=== PATIENT | female | born 1955 | race Caucasian/White ===

== ENCOUNTER 2022-08-25 15:35 | Inpatient (IN) | payer OTHER ==
--- OUTSIDE RECORDS SUMMARY | 2022-08-25 15:39 | XMS REPORT | Continuity of Care Document ---
:1955 Author Organization [facility] t Address [address] [place] [address] [address] [place] [address] Care Team Providers Name Role Phone Kell Chow Primary Care Physician ROXANNE GONSALEZ Attending Clinician Unavailable KEVIN PROCTOR Attending Clinician Unavailable Stacy ENRIQUEZ, Kami Attending Clinician Unavailable Jayme ENRIQUEZ, Rohan Attending Clinician Unavailable KEVIN PROCTOR M.D. Attending Clinician Unavailable TERRANCE ESPINOZA M.D. Attending Clinician Unavailable JF HERMAN Attending Clinician Unavailable ARPAN BECKER APRN Attending Clinician Unavailable LYSSA LINDSAY APRN Attending Clinician Unavailable UMAIR BRUNNER M.D. Attending Clinician Unavailable Payers Payer Name Policy Type Policy Number Effective Date Expiration Date S rambo [facility] MEDICARE [id number] 2020 ADVANTAGE 00:00:00 Problems Condition Condition Condition Status Onset Resolution Last Treating Co mments Source Name Details Category Date Date Treatment Clinician Date Lumbar Lumbar Problem Active UT adjacent adjacent Physic i segment segment ans disease disease with with spondyloli spondyloli sthesis sthesis History of History of Problem Active U T healed healed Physici osteoporos osteoporos an s is is fracture fracture History of History of Problem Active U T vitamin D vitamin D Phys ici deficiency deficiency an s Age-relate Age-relate Problem Active U T d d Physici osteoporos osteoporos an s is with is with current current pathol pathol fracture fracture of of vertebra, vertebra, with with routine routine healing, healing, subsequent subsequent encounter encounter Encounter Encounter Problem Active UT for for Physici screening screening ans for for endocrine endocrine disorder disorder 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 Avascular Avascular Problem Active UT necrosis necrosis Physic i of right of right ans humeral humeral head head 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 Encounter Encounter Problem Active UT for for Physici administra administra an s tion of tion of COVID-19 COVID-19 vaccine vaccine Right Right Problem Active UT shoulder shoulder Physic i pain pain ans Status Status Problem Active UT post post Physici replacemen replacemen an s t of right t of right shoulder shoulder joint joint History of History of Problem Resolve UT Adrenal Adrenal d Physici nodule nodule ans History of History of Problem Resolve UT hypertensi hypertensi d Ph ysici on on ans Type 2 Type 2 Problem Active UT diabetes diabetes Physic i mellitus mellitus ans without without complicati complicati on, on, without without long-term long-term current current use of use of insulin insulin Open Open Problem Active UT Fracture Fracture Physic i Of Of ans Proximal Proximal End Of End Of Humerus Humerus Pars Pars Problem Active UT defect defect Physici ans Wedge Wedge Problem Active UT fracture fracture Physic i of of ans vertebra vertebra Allergies, Adverse Reactions, Alerts This patient has no known allergies or adverse reactions. Family History Family Member Diagnosis Comments Start Date Stop Date Source Mother Family history of goiter [facility] Mother Family history of malignant [facility] neoplasm of thyroid Social History Social Habit Start Date Stop Date Quantity Comments Source Exposure to Not sure [facility] SARS-CoV-2 (event) Tobacco use and 2021-08-05 2021-08-05 Smokeless tobacco [facility] exposure 00:00:00 00:00:00 non-user Sex Assigned At [birth year] [facility] 00:00:00 00:00:00 Smoking Status Start Date Stop Date Source Never smoked tobacco [facility] Medications Ordered Filled Start Stop Current Ordering Indication Dosage Frequency Signature Comments Components Source Medication Medication Date Date Medication? Clinician (SIG) Name Name [facility] Yes [id number] Take 25 U T KwikPen 100 1-14 units Health UNIT/ML 00:00: daily in injection 00 the morning [facility] Yes [id number] Take 25 U T KwikPen 100 1-14 units Health UNIT/ML 00:00: daily in injection 00 the morning [facility] Yes [id number] Take 25 U T KwikPen 100 1-14 units Health UNIT/ML 00:00: daily in injection 00 the morning insulin 2021- No [id number] INJECT 25 UT glargine 08-06 01-14 UNITS Health (Lantus 00:00: 00:00 DAILY. SoloStar) 00 :00 100 UNIT/ML injection carvedilol Yes 12.5mg 12.5 mg. U T (Coreg) 08-04 Health 12.5 MG 14:53: tablet 40 carvedilol Yes 12.5mg 12.5 mg. U T (Coreg) 08-04 Health 12.5 MG 14:53: tablet 40 carvedilol Yes 12.5mg 12.5 mg. U T (Coreg) 08-04 Health 12.5 MG 14:53: tablet 40 carvedilol Yes 12.5mg 12.5 mg. U T (Coreg) 08-04 Health 12.5 MG 14:53: tablet 40 Continuous Yes [id number] Dispense 1 UT Blood Gluc -04 reader Health Spout Worker 00:00: device (iRuleStyle 00 Frantz 2 [place]) device Continuous Yes [id number] Change UT Blood Gluc 1-04 sensor Health Sensor 00:00: every 14 (FreeStyle days Frantz 2 Sensor) misc Insulin Pen Yes [id number] With U T Needle (BD 08-04 lantus Health Pen Needle 00:00: once daily Moni U/F) 00 32G X 4 MM misc semaglutide Yes [id number] Take 0.25 UT (Ozempic) 2 1-04 mg once Healt h MG/1.5ML 00:00: weekly for solution 00 4 weeks pen-injecto THEN r increase to 0.5 mg once weekly Lancets Yes [id number] Check UT Micro Thin 1-04 blood Health 33G misc 00:00: sugar 4 00 times daily (before meals and at bedtime) Continuous Yes [id number] Dispense 1 UT Blood Gluc 1-04 reader Health Spout Worker 00:00: device (FreeStyle 00 Frantz 2 [place]) device Continuous Yes [id number] Change UT Blood Gluc 1-04 sensor Health Sensor 00:00: every 14 (FreeStyle 00 days Frantz 2 Sensor) misc Insulin Pen Yes [id number] With U T Needle (BD 1-04 lantus Health Pen Needle 00:00: once daily Moni U/F) 00 32G X 4 MM misc semaglutide Yes [id number] Take 0.25 UT (Ozempic) 2 1-04 mg once Healt h MG/1.5ML 00:00: weekly for solution 00 4 weeks pen-injecto THEN r increase to 0.5 mg once weekly Lancets Yes [id number] Check UT Micro Thin 1-04 blood Health 33G misc 00:00: sugar 4 00 times daily (before meals and at bedtime) Continuous Yes [id number] Dispense 1 UT Blood Gluc 1-04 reader Health Spout Worker 00:00: device (FreeStyle 00 Frantz 2 [place]) device Continuous Yes [id number] Change UT Blood Gluc 1-04 sensor Health Sensor 00:00: every 14 (FreeStyle days Frantz 2 Sensor) misc Insulin Pen Yes [id number] With U T Needle (BD 1-04 lantus Health Pen Needle 00:00: once daily Moni U/F) 00 32G X 4 MM misc semaglutide Yes [id number] Take 0.25 UT (Ozempic) 2 1-04 mg once Healt h MG/1.5ML 00:00: weekly for solution 00 4 weeks pen-injecto THEN r increase to 0.5 mg once weekly Lancets Yes [id number] Check UT Micro Thin 1-04 blood Health 33G misc 00:00: sugar 4 00 times daily (before meals and at bedtime) Continuous Yes [id number] Dispense 1 UT Blood Gluc 1-04 reader Health Spout Worker 00:00: device (FreeStyle 00 Frantz 2 [place]) device Continuous Yes [id number] Change UT Blood Gluc 1-04 sensor Health Sensor 00:00: every 14 (FreeStyle days Frantz 2 Sensor) misc Insulin Pen Yes [id number] With U T Needle (BD 1-04 [employer] Pen Needle 00:00: once daily Moni U/F) 00 32G X 4 MM misc semaglutide Yes [id number] Take 0.25 UT (Ozempic) 2 1-04 mg once Healt h MG/1.5ML 00:00: weekly for solution 00 4 weeks pen-injecto THEN r increase to 0.5 mg once weekly Lancets Yes [id number] Check UT Micro Thin 08-04 blood Health 33G misc 00:00: sugar 4 00 times daily (before meals and at bedtime) glucose 2022- No [id number] Check UT blood test 08-04 blood Health strip 00:00: 05:59 sugar 4 00 :00 times daily (before meals and at bedtime) glucose 2022- No [id number] Check UT blood test 08-04 blood Health strip 00:00: 05:59 sugar 4 00 :00 times daily (before meals and at bedtime) glucose 2022- No [id number] Check UT blood test 08-04 blood Health strip 00:00: 05:59 sugar 4 00 :00 times daily (before meals and at bedtime) glucose 2022- No [id number] Check UT blood test 08-04 blood Health strip 00:00: 05:59 sugar 4 00 :00 times daily (before meals and at bedtime) insulin 2021- No [id number] Inject 25 UT glargine 08-0405 Units Health (Lantus) 00:00: 04:59 under the 100 UNIT/ML 00 :00 skin 1 injection (one) time each day in the morning. insulin 2021- No [id number] 25U Inject 25 UT glargine 08-04 Units Health (Lantus) 00:00: 00:00 under the 100 UNIT/ML 00 :00 skin 1 injection (one) time each day in the morning. OneTouch OneTouch Yes KEVIN Dispense 1 UT Ultra 2 Ultra 2 5-07 GUTGungroo monitor Physici w/Device w/Device 00:00: M.D. ans Kit Kit 00 FreeStyle FreeStyle Yes KEVIN USE ONE UT Frantz 2 Frantz 2 5-07 [place] SENSOR P hysici Sensor Sensor 00:00: M.D. EVERY 14 ans 00 DAYS FreeStyle FreeStyle Yes KEVIN Please UT Frantz 2 Frantz 2 5-07 [place] dispense Physici [place] 00:00: M.D. one reader ans Device Device 00 device. NovoLOG NovoLOG Yes KEVIN Take 12 UT FlexPen 100 FlexPen 100 5-07 [place] units with Physici UNIT/ML UNIT/ML 00:00: M.D. meals plus a ns Subcutaneou Subcutaneou 00 correction s Solution s Solution as needed Pen-injecto Pen-injecto (up to 45 r r units per day) Tresiba Tresiba Yes KEVIN Take 35 UT FlexTouch FlexTouch 5-07 [place] units once Physici 100 UNIT/ML 100 UNIT/ML 00:00: M.D. daily in ans Subcutaneou Subcutaneou 00 the s Solution s Solution morning Pen-injecto Pen-injecto r r BD Pen BD Pen Yes KEVIN USE FOUR UT Needle Moni Needle Moni 5-07 GUT[place] TIMES Physici U/F 32G X 4 U/F 32G X 4 00:00: M.D. DAILY ans MM MM 00 Amoxicillin Amoxicillin Yes TERRANCE Take 2 UT 500 MG Oral 500 MG Oral 4-06 ESPINOZA M.D. capsules Physici Capsule Capsule 00:00: 30 minutes a ns 00 prior to dental procedure and 2 capsules right after the procedure. DME DME Yes TERRANCE Massage UT 4-29 KOEPPLINGE [employer] Physic i 00:00: R D.O. ans 00 simvastatin 2011-08 Yes UT (Zocor) 40 0-04 Health MG tablet 00:00: 00 ramipril 2011-08 Yes UT (Altace) 10 0-04 Health MG capsule 00:00: 00 simvastatin 2011-08 Yes UT (Zocor) 40 0-04 Health MG tablet 00:00: 00 ramipril 2011-08 Yes UT (Altace) 10 0-04 Health MG capsule 00:00: 00 simvastatin 2011-08 Yes UT (Zocor) 40 0-04 Health MG tablet 00:00: 00 ramipril 2011-08 Yes UT (Altace) 10 0-04 Health MG capsule 00:00: 00 simvastatin 2011-08 Yes UT (Zocor) 40 0-04 Health MG tablet 00:00: 00 ramipril 2011-08 Yes UT (Altace) 10 0-04 Health MG capsule 00:00: 00 Simvastatin Simvastatin 2011-08 Yes UT 40 MG Oral 40 MG Oral 0-04 Phy sici Tablet Tablet 00:00: ans 00 Ramipril 10 Ramipril 10 2011-08 Yes UT MG Oral MG Oral 0-04 Physici Capsule Capsule 00:00: ans 00 Carvedilol Carvedilol Yes UT 12.5 MG 12.5 MG Physici Oral Tablet Oral Tablet a ns Immunizations Ordered Immunization Filled Immunization Date Status Commen ts Source Name Name Pivotstream 2020-09-24 Completed [facility] Physic ians COVID-19 Vacc 30 12:55:00 MCG/0.3ML Intramuscular Suspension Pivotstream 2020-08-31 Completed [facility] Physic ians COVID-19 Vacc 30 10:08:00 MCG/0.3ML Intramuscular Suspension Vital Signs Vital Name Observation Time Observation Value Comments Source Systolic blood 2020-11-18 14:52:00 116 mm[Hg] Location: E; [facility] pressure Position: Sitting Diastolic blood 2020-11-18 14:52:00 80 mm[Hg] Location: E; [facility] pressure Position: Sitting Body height 2020-11-18 14:52:00 64 [in_us] [facility] Weight 2020-11-18 14:52:00 191.125 [lb_av] [facility] Body mass index 2020-11-18 14:52:00 32.81 kg/m2 [facility] (BMI) [Ratio] Heart Rate 2020-11-18 14:52:00 102 /min [facility] Procedures Procedure Date / Time Performed Performing Clinician Sourc e [QL] HEMOGLOBIN A1c 2020-12-02 00:00:00 [facility] [QL] BASIC METABOLIC PANEL 2020-11-18 00:00:00 [facility] W/EGFR [Q] DEXAMETHASONE 2020-11-18 00:00:00 [facility] ans SUPPRESSION TEST (DST), 1 SPECIMEN [Q] DEXAMETHASONE 2020-11-18 00:00:00 [facility] ans [Q] PLASMA RENIN 2020-11-18 00:00:00 [facility] ACTIVITY,LC/MS/MS [QL] ALDOSTERONE, LC/MS/MS 2020-11-18 00:00:00 [facility] [QL] METANEPHRINES, FRACT, 2020-11-18 00:00:00 [facility] LC/MS/MS, PLASMA Post Op Promis 29 Survey 2020-08-05 00:00:00 [facility] History of Laparoscopic [facility] adjustable gastric banding History of Cholecystectomy [facility] History of Hernia repair [facility] History of Cataract surgery [facility] History of Shoulder [facility] replacement Encounters Start End Encounter Admission Attending Care Care Encounter Source Date/Time Date/Time Type Type Clinicians Facility Department ID 2021-08-11 Outpatient ROXANNE GONSALEZ [facility] [id number] UT 09:19:03 [facility] 2021-08-06 Outpatient [facility] [id number] UT 08:59:13 [facility] 2020-12-31 Outpatient [facility] [id number] UT 09:20:29 [facility] 2021-11-11 2021-11-11 Telephone Kami Kumar [facility] [id number] [place] 00:00:00 00:00:[address] [id number] Health [id number] 2021-09-07 2021-09-07 Telephone Rohan Delacruz [id number]. [id number] [place] 00:00:00 00:00:00 Rohan Delacruz [id number] Health MEDICAL [id number] [place] [id number] 2021-08-14 2021-08-14 Telephone Esthela [facility]TP [id number] [id number] [place] 00:00:00 00:00:[address] [id number] Health [id number] 2021-08-05 2021-08-05 Telephone Esthela [facility] 6410 [id number] [place] 00:00:00 00:00:[address] [id number] Health [id number] 2021-08-04 2021-08-04 [facility] Esthela [facility] 6410 [id number] UT 14:40:00 15:43:[address] [id number] Health [id number] 2020-11-18 [id number] UT 15:00:00 15:00:00 t; [facility]tagracia [facility] Latrell BROWN M.D. Kiana 2020-09-24 2020-09-24 Appointmen JOSEFA ESPINOZA UTP [id number] UT 15:00:00 15:00:00 t; TERRANCE ESPINOZA Phys ici MATTHEW, M.D. ans M.D. 2020-09-24 2020-09-24 Appointmen JOSEFA ESPINOZA UTP [id number] UT 13:30:00 13:30:00 t; TERRANCE ESPINOZA Phys ici MATTHEW, M.D. ans M.D. 2020-09-24 2020-09-24 Appointmen CO19, JOSEFA UTP [id number] UT 09:50:00 09:50:00 t; CO19, NURSE-COOLE P hysici NURSE-COOL Y ans EY 2020-08-31 2020-08-31 Appointmen CO19, UTP UTP [id number] UT 09:20:00 09:20:00 t; CO19, NURSE-COOLE P hysici NURSE-COOL Y ans EY 2020-08-12 2020-08-12 Appointmen JOSEFA BECKER UTP [id number] UT 10:00:00 10:00:00 t; ARPAN BECKER, Ph bruce ANTONY MOBILE HEAVY EQUIPMENT OPERATOR ans , MOBILE HEAVY EQUIPMENT OPERATOR 2020-07-10 2020-07-10 Appointmen JOSEFA ESPINOZA UTP [id number] UT 10:30:00 10:30:00 t; TERRANCE ESPINOZA Phys ici MATTHEW, M.D. ans M.D. 2020-07-01 2020-07-01 [facility] OLGA [facility] UTP [id number] UT 08:30:00 08:30:00 t; TERRANCE ESPINOZA Phys ici MATTHEW, M.D. ans M.D. 2020-05-29 2020-05-29 [facility] [id number] UT 16:00:00 16:00:00 t; TERRANCE ESPINOZA Phys ici MATTHEW, M.D. ans M.D. 2020-04-15 2020-04-15 [facility] LYSSA LINDSAY, [facility] [id number] UT 09:30:00 09:30:00 t; EUSEBIA LINDSAY Physic i LYSSA [facility] 2020-03-24 2020-03-24 [facility] LYSSA LINDSAY, [facility] [id number] UT 10:30:00 10:30:00 t; EUSEBIA LINDSAY Physic i LYSSA [facility] 2020-03-19 2020-03-19 [facility] REGINALD [facility] [id number] UT 12:00:00 12:00:00 t; Raiza BRUNNER ANDREW, ans ANDREW, M.D. M.D. 2020-03-06 2020-03-06 [facility] REGINALD [facility] UTP [id number] UT 13:45:00 13:45:00 t; Raiza BRUNNER ANDREW, ans ANDREW, M.D. M.D. 2020-01-18 2020-01-18 [facility] [id number] UT 15:00:00 15:00:00 t; TERRANCE ESPINOZA Phys ici MATTHEW, M.D. ans M.D. Results Test Description Test Time Test Comments Results Result Comments Source [QL] HEMOGLOBIN A1c 2020-12-03 08:28:00 Test Item Value Reference Range Interpretation Comme nts HEMOGLOBIN A1c; Above High 13.7 {% of total} <5.7 For someone without known Threshold (test code = diabe zaki, a hemoglobin H3qagner 4548-4) of 6.5% or grea ter indicates that they may h ave diabetes and this should be confirmed with a follow-up test. For someone with known diabetes, a value <7% indicates that their diabetes is well controlled and a value greater than or equal to 7% indicates subop timal control. A1c targets sandy uld be individualized based on duration of diabetes, ag e, comorbid conditions, and other considerations. Currently, no consensus exist s regarding use ofhemoglobin A1 c for diagnosis of diabetes for children. SPECIMEN RECEIV ED DATE AND TIME: REPORT COMMENT:FASTING:YESUT [facility]icians[QL] BASIC METABOLIC PANEL W/EGFR 2020-11-27 07:42:00 Test Item Value Reference Range Interpretation Comments GLUCOSE; Above 505 mg/dl 65-139 Verified by r epeat High Threshold analysis. Non -fasting (test code = reference inter zac 1547-9) UREA NITROGEN 17 mg/dl 7-25 N (BUN) (test code = UREA NITROGEN (BUN)) CREATININE (test 0.66 mg/dl 0.50-0.99 N For patient s >49 years code = of age, the ref erence CREATININE) limitfor Creati nine is approximately 1 3% higher for peopleidentifie d as -Pepper n. eGFR NON-AFR. 91 {ML/MIN/1.7} See_Comment N [Automated message] [place] (test The system ich code = eGFR generated this result NON-AFR. transmitted ref erence [place]) range: > OR = 6 0. The reference range was not used to int erpret this result as normal/abnormal . eGFR 106 {ML/MIN/1.7} See_Comment N [Automated message] [place] (test The system ich code = eGFR generated this result ) transmitte d reference range: > OR = 6 0. The reference range was not used to int erpret this result as normal/abnormal . BUN/CREATININE NOT APPLICABLE 6-22 RATIO (test code = BUN/CREATININE RATIO) SODIUM (test code 134 mmol/L 135-146 = SODIUM) POTASSIUM (test 4.9 mmol/L 3.5-5.3 N code = POTASSIUM) CHLORIDE (test 99 mmol/L 98-110 N code = CHLORIDE) CARBON DIOXIDE 24 mmol/L 20-32 N (test code = CARBON DIOXIDE) CALCIUM (test 9.1 mg/dl 8.6-10.4 N SPECIMEN RECEI KEMAL DATE code = CALCIUM) AND TIME: [id number] [facility][Q] PLASMA RENIN ACTIVITY,LC/MS/[id number] 07:42:00 Test Item Value Reference Range Interpretation Comments PLASMA RENIN 1.70 0.25-5.82 This test was d eveloped and its ACTIVITY,LC/ ng/mL/h analytical MS/MS (test performancechar acteristics have code = been determined by [employer] PLASMA RENIN [facility] [employer] [employer] . It has not MS/MS) beencleared or approved by FDA. This assay has been validatedpursua nt to the CLIA regulations and is used for clinicalpurpose s. SPECIMEN RECEIVED DATE A ND TIME: [id number] [facility][QL] ALDOSTERONE, LC/MS/[id number] 07:42:00 Test Item Value Reference Range Interpretation Comments ALDOSTERONE, 5 ng/dl Adult Reference Ranges for LC/MS/MS (test Aldosterone: Upright 8:00-10:00 code = am < or = 28 ng /dL Upright ALDOSTERONE, 4:00-6:00 pm < or = 21 ng/dL LC/MS/MS) Supine 8:00-10: 00 am 3-16 ng/dL This test was d eveloped and its analytical performancechar acteristics have been determined by [facility] [employer] rom[employer]. It has not beencleared or approved by FDA. This assay has been validatedpursua nt to the CLIA regulations and is used for clinicalpurpose s. SPECIMEN RECEIVED DATE A ND TIME: [id number] REPORT COMMENT:FASTING:NOUT Physicians[Q] DEXAMETHASONE SUPPRESSION TEST (DST), 1 [id number] 07:42:00 Test Item Value Reference Range Interpretation Comments CORTISOL (test 1.6 {mcg/dl} N Dexamethasone code = CORTISOL) Suppression TestFor 8 a.m. Specimen: <2.0 - Normal Response 2.0-10.0 - Equivocal &g t;10.0 - High probabilit y of Hammond's SyndromeFurther diagnostic test s must be performed to co nfirmthe diagnosis and d etermine etiology. Value s >2.0 mcg/dL canbe se en in endogenous depr ession and pseudo-Juan Daniel' s(alcohol ism). SPECIMEN RECEIVED DATE AND TIME: REPORT COMMENT:FASTING:NOUT Physicians[Q] [id number] 07:42:00 Test Item Value Reference Interpretation Comments Range DEXAMETHASONE 387 ng/dl Reference Rang es for (test code = Dexamethasone: Baseline: Less DEXAMETHASONE) than 20 ng/dL 1 mg dexamethasone o vernight: 180-550 ng/dL ( 8:00-10:00 AM) This test was d eveloped and its analytical performancechar acteristics have been deter mined by [facility]. It has not beencleared or approved by FDA. This assay has been validatedpursua nt to the CLIA regulations and is used for clinicalpurpose s.SPECIMEN RECEIVED DATE A ND TIME: [id number] REPORT COMMENT:FASTING:NOUT Physicians[QL] METANEPHRINES, FRACT, LC/MS/MS, [id number] 07:42:00 Test Item Value Reference Interpretation Comments Range METANEPHRINE (test <25 See_Comment This test was developed and code = its analytical METANEPHRINE) performancecha racteristics have been deter mined by [facility]. It has not beencleared or approved by FDA. This as say has been validatedpursua nt to the CLIA regulations and is used for clinicalpurpose s. [Automated message] The sy stem which generated this result transmitted ref erence range: < OR = 57. The reference range was not u sed to interpret this result as normal/abnormal . NORMETANEPHRINE 46 pg/ml See_Comment This test wa s developed and (test code = its analytical NORMETANEPHRINE) performance characteristics have been deter mined by [facility]. It has not beencleared or approved by FDA. This as say has been validatedpursua nt to the CLIA regulations and is used for clinicalpurpose s. [Automated message] The sy stem which generated this result transmitted ref erence range: < OR = 148. The reference range was not u sed to interpret this result as normal/abnormal . TOTAL METANEPHRINE 46 pg/ml See_Comment Elevation s > 4-fold upper (test code = TOTAL reference range: METANEPHRINE) stronglysugges tive of a pheochromocytom a(1). Elevations >1 - 4-foldupper reference range : significant but not diagnos tic, maybe due to medications or stress. Suggest running 24 hr urinefractionat ed metanephrines a nd serum Chromogranin A forconfirmation . Reference: (1) [place]-S lisa Biggs et al, Plasma Department Director mogranin A orUrine Fractio nated Metanephrines F ollow-Up Testing Improve sthe Diagnostic Accu racy of Plasma Fractionated Me tanephrinesfor Pheochromocytom a. The Journal of Clinical End ocrinologyand Metabolism 93 ( 1),91-95, 2007. For addit ional information, pl ease refer tohttp://educat ion.[employer].Holganix/faq/ MetFractFree(T his link is arya allison provided for informational/e ducationalpurp oses only.) Thi s test was developed and i ts analytical performancechar acteristics have been deter mined by [facility]. It has not beencleared or approved by FDA. This as say has been validatedpursua nt to the CLIA regulations and is used for clinicalpurpose s.SPECIMEN RECEIVED DATE A ND TIME: [id number] [A utomated message] The sy stem which generated this result transmitted ref erence range: < OR = 205. The reference range was not u sed to interpret this result as normal/abnormal . This test was developed and its analytical performancecharacteristics have been determined by [facility]. It has not beencleared or approved by FDA. This assay has been validatedpursuant to the CLIA regulations and is used for clinicalpurposes.REPORT COMMENT:FASTING:NOUT Physicians
[2022-08-25 16:34] LABS: Absolute Lymphocytes (CBC) 3.1 K/uL (0.7-4.9); Hematocrit 38.6 % (36.0-45.0); Lymphocytes % 24.2 % (15.3-44.8); MCV 89.1 fL (80-100); RBC Red Blood Cell Count 4.34 M/uL (3.86-4.86)
--- NOTE | 2022-08-25 16:54 | RAD REPORT ---
EXAM DESCRIPTION: CT - Foot Right Wo Con - 08/25/2022 4:40 pm CLINICAL HISTORY: right great toe wound, cellulitis Pain and swelling COMPARISON: No comparisons FINDINGS: There is a soft tissue ulceration noted along the plantar medial aspect of the great toe s oft tissues. The soft tissues of the great toe along the medial forefoot are quite thickened and hollis atous. No soft tissue gas is present. No CT evidence of osteomyelitis demonstrated. IMPRESSION: No CT evidence of osteomyelitis. MRI could be obtained if clinical concern persists. All CT scans are performed using dose optimization technique as appropriate and may include automated exposure control or mA/KV adjustment according to patient size.
[2022-08-25 16:58] LABS: Albumin 3.1 g/dL (3.4-5.0); Bilirubin Total 0.5 mg/dL (0.2-1.0); Potassium 4.4 mmol/L (3.5-5.1); Protein, Total 7.6 g/dL (6.4-8.2)
--- NOTE | 2022-08-25 17:54 | RAD REPORT ---
EXAM DESCRIPTION: RAD - Foot Right 3 View - 08/25/2022 5:49 pm CLINICAL HISTORY: WOUND COMPARISON: Foot Right Wo Con dated 08/25/2022; Chest Pa And Lat (2 Views) dated 12/18/2019 FINDINGS: Soft tissue swelling affects the great toe. Soft tissue ulceration is seen plantar medial aspect of the great toe. No plain film finding to indicate osteomyelitis. Large plantar calcaneal spu r.
--- NOTE | 2022-08-25 18:52 | ER ---
Nurse's Notes [facility] Name: Indigo Angulo Age: 67 yrs Sex: Female : 1955 Arrival Date: 08/25/2022 Time: 15:39 Bed 18 Private MD: Diagnosis: Cellulitis of the right great toe Presentation: 08/25 16:00 Chief complaint: Patient states: has a diabetic foot ulcer on right great toe for at iw least a month , was seen at urgent care and was sent here to r/o osteomyelitis. Coronavirus screen: At this time, the client does not indicate any symptoms associated with coronavirus-19. Ebola Screen: Patient negative for fever greater than or equal to 101.5 degrees Fahrenheit, and additional compatible Ebola Virus Disease symptoms Patient denies exposure to infectious person. Patient denies travel to an Ebola-affected area in the 21 days before illness onset. No symptoms or risks identified at this time. Initial Sepsis Screen: Does the patient meet any 2 criteria? No. Patient's initial sepsis screen is negative. Does the patient have a suspected source of infection? No. Patient's initial sepsis screen is negative. Risk Assessment: Do you want to hurt yourself or someone else? Patient reports no desire to harm self or others. Onset of symptoms was July 2022. 16:00 Method Of Arrival: Ambulatory iw 16:00 Acuity: RADHA 3 iw Historical: - Allergies: 16:02 No Known Allergies; iw - PMHx: 16:02 Diabetes mellitus; Hypertensive disorder; Hypercholesterolemia; iw - PSHx: 16:02 right shoulder; iw - Immunization history:: Client reports receiving the 2nd dose of the Covid vaccine, Flu vaccine is up to date. - Social history:: Smoking status: Patient denies any tobacco usage or history of. Screenin:28 [facility] ED Fall Risk Assessment (Adult) History of falling in the last 3 months, lg3 including since admission No falls in past 3 months (0 pts). Abuse screen: Denies threats or abuse. Denies injuries from another. Nutritional screening: No deficits noted. Tuberculosis screening: No symptoms or risk factors identified. Assessment: 19:28 General: Appears in no apparent distress. comfortable, Behavior is calm, cooperative. lg3 Pain: Complains of pain in plantar aspect of right first toe Pain currently is 2 out of 10 on a pain scale. Neuro: No deficits noted. Camilo Agitation-Sedation Scale (RASS): 0 - Alert and Calm Level of Consciousness is awake, alert, obeys commands, Oriented to person, place, time, situation. Cardiovascular: No deficits noted. Denies chest pain, shortness of breath, Capillary refill < 3 seconds Clubbing of nail beds is absent JVD is absent Patient's skin is warm and dry. Respiratory: No deficits noted. Airway is patent Trachea midline Respiratory effort is even, unlabored, Respiratory pattern is regular, symmetrical. GI: No deficits noted. No signs and/or symptoms were reported involving the gastrointestinal system. Abdomen is round non-distended. : No deficits noted. No signs and/or symptoms were reported regarding the genitourinary system. EENT: No deficits noted. No signs and/or symptoms were reported regarding the EENT system. Derm: Wound noted plantar aspect of right first toe. Musculoskeletal: No deficits noted. No signs and/or symptoms reported regarding the musculoskeletal system. Swelling present in right first toe. Vital Signs: 16:00 BP 173 / 94; Pulse 106; Resp 16; Temp 98.4; Pulse Ox 100% on R/A; Weight 86.18 kg; iw Height 5 ft. 4 in. (162.56 cm); 19:28 BP 154 / 88; Pulse 94; Resp 17 S; Pulse Ox 100% on R/A; lg3 16:00 Body Mass Index 32.61 (86.18 kg, 162.56 cm) ED Course: 15:39 Patient arrived in ED. mr 15:46 Jim Varner PA is PHCP. [facility] 15:46 Buck Harris MD is Attending Physician. [facility] 16:02 Triage completed. iw 16:03 Arm band placed on. iw 16:26 Inserted saline lock: 20 gauge in left antecubital area, using aseptic technique. Blood zm collected. 16:26 CRP Sent. zm 16:26 Lactate w/ 2H reflex if indic. Sent. zm 16:26 Blood Culture Adult (2) Sent. zm 16:26 CMP Sent. zm 16:26 CBC with Diff Sent. zm 16:42 Foot Right Wo Con In Process Unspecified. EDMS 17:50 Foot Right 3 View In Process Unspecified. EDMS 18:43 Lower Extremity Artery Uni Ltd In Process Unspecified. EDMS 18:51 Baidoo, Hilario is Hospitalizing Provider. [facility] 19:28 Patient has correct armband on for positive identification. Placed in gown. Bed in low lg3 position. Call light in reach. Side rails up X 1. Door closed. Noise minimized. Warm blanket given. Family accompanied patient. 19:28 No provider procedures requiring assistance completed. IV is patent, is intact, with lg3 good blood return, Flushed. 08/26 11:27 Patient admitted, IV remains in place. ap3 Administered Medications: 08/25 19:27 Drug: vancoMYCIN 1 grams Route: IVPB; Infused Over: 2 hrs; Site: left antecubital; lg3 Medication: 19:28 VIS not applicable for this client. lg3 Outcome: 18:52 Decision to Hospitalize by Provider. [facility] 08/26 11:27 Admitted to OR accompanied by nurse, via wheelchair, with chart. ap3 Condition: good Instructed on the need for admit. 11:28 Patient left the ED. ap3 Signatures: Dispatcher [employer] EDMS Jim Varner PA PA [facility] Makeda Shay mr Mayela Gaspar, Soumya Antonio RN, RN RN ap3 Jaclyn Sandhu RN RN lg3 Ivon Payton
--- NOTE | 2022-08-25 18:52 | EDPHYS ---
Physician Documentation [facility] Name: Indigo Angulo Age: 67 yrs Sex: Female : 1955 Arrival Date: 08/25/2022 Time: 15:39 Bed 18 Private MD: ED Physician Buck Harris HPI: 08/25 16:07 This 67 yrs old Female presents to ER via Ambulatory with complaints of Open wound. jmm 16:07 Is a 67-year-old female with history of diabetes mellitus and hypertension the presents jmm emerged part with complaints of redness and swelling to her right great toe beginning yesterday. Patient states she has had a wound underneath her toe for the past month. Denies any fever or drainage.. Historical: - Allergies: 16:02 No Known Allergies; iw - PMHx: 16:02 Diabetes mellitus; Hypertensive disorder; Hypercholesterolemia; iw - PSHx: 16:02 right shoulder; iw - Immunization history:: Client reports receiving the 2nd dose of the Covid vaccine, Flu vaccine is up to date. - Social history:: Smoking status: Patient denies any tobacco usage or history of. ROS: 16:07 Constitutional: Negative for fever, chills, and weight loss, Cardiovascular: Negative jm for chest pain, palpitations, and edema, Respiratory: Negative for shortness of breath, cough, wheezing, and pleuritic chest pain. 16:07 Skin: Positive for erythema. 16:07 All other systems are negative. Exam: 16:07 Constitutional: This is a well developed, well nourished patient who is awake, alert, jmm and in no acute distress. Head/Face: atraumatic. Eyes: EOMI, no conjunctival erythema appreciated ENT: Moist Mucus Membranes Neck: Trachea midline, Supple Chest/axilla: Normal chest wall appearance and motion. Cardiovascular: Regular rate and rhythm. No edema appreciated Respiratory: Normal respirations, no respiratory distress appreciated Abdomen/GI: Non distended Back: Normal ROM 16:07 MS/ Extremity: Moves all extremities, no obvious deformities appreciated, no edema noted to the lower extremities Neuro: Awake and alert Psych: Behavior is normal, Mood is normal, Patient is cooperative and pleasant 16:07 Skin: Erythema and induration noted to the entire right great toe, mildly tender to palpation, ulcer noted to the plantar surface. Vital Signs: 16:00 BP 173 / 94; Pulse 106; Resp 16; Temp 98.4; Pulse Ox 100% on R/A; Weight 86.18 kg; iw Height 5 ft. 4 in. (162.56 cm); 19:28 BP 154 / 88; Pulse 94; Resp 17 S; Pulse Ox 100% on R/A; lg3 16:00 Body Mass Index 32.61 (86.18 kg, 162.56 cm) iw MDM: 16:08 Patient medically screened. [facility] 18:48 Data reviewed: vital signs, nurses notes. [facility] 18:50 Consideration of Admission/Observation Patient was admitted/placed on observation. [facility] Management of patient was discussed with the following: Hospitalist: Dr. Lotus Woodall. Food Storeroom Clerk: Dr. Bradley. I considered the following discharge prescriptions or medication management in the emergency department Medications were administered in the Emergency Department. See MAR. Test considered but Not performed:. Counseling: I had a detailed discussion with the patient and/or guardian regarding: the historical points, exam findings, and any diagnostic results supporting the discharge/admit diagnosis, lab results, radiology results, the need for further work-up and treatment in the hospital. 08/25 16:07 Order name: CBC with Diff; Complete Time: 16:47 [facility] 08/25 16:07 Order name: CMP; Complete Time: 17:13 [facility] 08/25 16:07 Order name: Blood Culture Adult (2) [facility] 08/25 16:07 Order name: Lactate w/ 2H reflex if indic.; Complete Time: 16:58 [facility] 08/25 16:07 Order name: CRP; Complete Time: 17:13 [facility] 08/25 19:17 Order name: SARS RAPID; Complete Time: 20:49 [facility] 08/25 21:12 Order name: Glucose, Ancillary Testing; Complete Time: 22:38 [facility] 08/26 04:09 Order name: CBC with Automated Diff; Complete Time: 04:16 [facility] 08/26 04:25 Order name: Basic Metabolic Panel; Complete Time: 05:14 [facility] 08/26 04:25 Order name: Phosphorus; Complete Time: 05:14 [facility] 08/26 04:25 Order name: Lipid Profile; Complete Time: 05:14 [facility] 08/26 04:25 Order name: Magnesium; Complete Time: 05:14 [facility] 08/26 04:30 Order name: Hemoglobin A1c; Complete Time: 05:14 ED[facility] 08/26 08:12 Order name: Glucose, Ancillary Testing; Complete Time: 08:13 EDMS 08/25 16:07 Order name: Saline Lock; Complete Time: 16:26 [facility] 08/25 16:11 Order name: Foot Right Wo Con; Complete Time: 16:58 EDMS 08/25 17:45 Order name: Foot Right 3 View; Complete Time: 17:59 EDMS 08/25 18:17 Order name: Lower Extremity Artery Uni Ltd; Complete Time: 19:00 EDMS Administered Medications: 19:27 Drug: vancoMYCIN 1 grams Route: IVPB; Infused Over: 2 hrs; Site: left antecubital; lg3 Disposition: 08/27 06:58 Co-signature as Attending Physician, Buck Harris MD I reviewed the patient's care rt provided by the Advanced Practice Provider and agree with the diagnosis and treatment plan. Disposition Summary: 08/25/22 18:52 Hospitalization Ordered Hospitalization Status: Inpatient Admission [facility] Provider: Hilario Lopez Condition: Stable jm Problem: new jmm Symptoms: are unchanged jm Bed/Room Type: Standard [facility] Location: [facility] ER HOLD(08/25/22 20:45) cg Room Assignment: ERHOLD-(08/25/22 20:45) cg Diagnosis - Cellulitis of the right great toe [facility] Forms: - Medication Reconciliation Form jmm - SBAR form jmm Signatures: Dispatcher [employer] EDMS Jim Varner PA PA jmm Williams, Irene, RN RN Gemma Lucas RN RN Jaclyn Sandhu RN RN lg3 Chery Woodall PA-C PAAlisa sb4 Buck Harris MD MD rt Corrections: (The following items were deleted from the chart) 08/25 17:44 16:08 Foot Right 3 View+RAD.RAD.BRZ ordered. EDMS EDMS 18:14 17:44 Lower Extremity Artery Uni Ltd+US.RAD.BRZ ordered. EDMS EDMS 18:17 18:14 Extremity Venous Uni Ltd ordered. EDMS EDMS 20:45 18:52 Telemetry/MedSurg (Inpatient) [facility] cg 20:45 18:52 [facility] cg
--- NOTE | 2022-08-25 18:57 | RAD REPORT ---
EXAM DESCRIPTION: US - Lower Extremity Artery Uni Ltd - 08/25/2022 6:42 pm CLINICAL HISTORY: cellulitis Leg pain and swelling COMPARISON: No comparisons FINDINGS: Grayscale, power and spectral Doppler assessment of the right lower extremity arterial sys tem was performed. Triphasic waveforms are seen to the level of the popliteal artery. Infrapopliteal vessels are monopha sic and mildly blunted. IMPRESSION: Moderate infrapopliteal peripheral vascular disease.
[2022-08-25] MEDS ORDERED: VANCOMYCIN 1 GM/VIAL ONE (19:20)
[2022-08-25] MEDS ORDERED: NA CHLORIDE 0.9% 250 ML ONE (19:20)
--- NOTE | 2022-08-25 19:29 | P.HP ---
Certification for Inpatient Patient admitted to: Inpatient With expected LOS: <2 Midnights Patient will require the following post-hospital care: None Practitioner: I am a practitioner with admitting privileges, knowledge of patient current condition, hospital course, and medical plan of care. Services: Services provided to patient in accordance with Admission requirements found in Title 42 Section 412.3 of the Code of Federal Regulations Patient History Date of Service: 08/25/22 Primary Care Provider: Geraldo Reason for admission: Cellulitus R Big Toe History of Present Illness: Patient is a 67-year-old female with past medical history of type 2 diabetes, hypertension, and hyperlipidemia who presented to the emergency department with complaints of right big toe erythema and swelling. Patient states that she has had a wound on the plantar aspect of her right big toe for over a month now, but yesterday she noticed the toe itself was becoming very red and swollen. She is diabetic but has not been taking any oral medication or insulin in over 6 months. She went to an urgent care today and they sent her here to have os teomyelitis ruled out. CT was negative for osteomyelitis. Labs significant for WBC 12.9, CRP 128, glucose 426. She was started on vancomycin. Dr. Bradley was contacted and has agreed to consult. Patient will be admitted for further management. Allergies codeine [Codeine] Adverse Reaction (Intermediate, Verified 05/02/12 09:58) NAUSEA Home medications list reviewed: Yes - Past Medical/Surgical History Diabetic: Yes -: Type 2 Diabetes -: Hypertension -: Hyperlipidemia -: Right shoulder Psychosocial/ Personal History: Patient is . - Family History Family History: Reviewed- Non-Contributory - Social History Smoking Status: Never smoker Alcohol use: No CD- Drugs: No Caffeine use: Yes Place of Residence: Home Review of Systems 10-point ROS is otherwise unremarkable Integumentary: As per HPI Physical Examination - Physical Exam General: Alert, In no apparent distress HEENT: Atraumatic, PERRLA, EOMI, Sclerae nonicteric Neck: Supple, 2+ carotid pulse no bruit, No LAD, Without JVD or thyroid abnormality Respiratory: Clear to auscultation bilaterally, Normal air movement Cardiovascular: Regular rate/rhythm, Normal S1 S2 Gastrointestinal: Normal bowel sounds, No tenderness Musculoskeletal: No tenderness Integumentary: Tenderness/swelling (r big toe cellulitus), Erythema, Warmth, Diabetic ulcer (plantar aspect of r big toe) Neurological: Normal speech, Normal strength at 5/5 x4 extr, Normal tone - Studies Laboratory Data (last 24 hrs) 08/25/22 16:20: Sodium 132 L, Potassium 4.4, BUN 12, Creatinine 0.68, Glucose 426 H*, Total Bilirubin 0.5, AST 6 L, ALT 14, Alkaline Phosphatase 183 H 08/25/22 16:20: WBC 12.80 H, Hgb 12.9, Hct 38.6, Plt Count 304 Assessment and Plan - Problems (Diagnosis) (1) Cellulitis of toe of right foot Current Visit: Yes Status: Acute (2) Type 2 diabetes mellitus Current Visit: Yes Status: Chronic 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 Continue vancomycin. Dr. Bradley & wound care consulted. NPO at midnight in case for surgical intervention. Strict glucose monitoring and control. Patient has not been taking any of her diabetic medications for over 6 months. Wound culture ordered. Check A1c and lipid panel in the morning. Monitor and replete electrolytes per protocol. SCDs for VTE prophylaxis. Full code. Discharge Plan: Home Plan to discharge in: 48 Hours - Advance Directives Does patient have a Living Will: No Does patient have a Durable POA for Healthcare: No - Code Status/Comfort Care Code Status Assessed: Yes Code Status: Full Code Physician Review: Patient Assessed, Agree with Above Assessment and Plan Critical Care: No Time Spent Managing Pts Care (In Minutes): 50
[2022-08-25] MEDS ORDERED: ONDANSETRON 4 MG/2 ML VIAL IV PRN (20:21)
[2022-08-25] MEDS ORDERED: ACETAMINOPHEN 500 MG TAB PO PRN (20:21)
[2022-08-25 20:23] LABS: SARS-CoV-2 Antigen Rapid Res Negative (Negative)
[2022-08-25] MEDS: VANCOMYCIN 1 GM in NA CHLORIDE 0.9% 250 ML IVPB SCH (20:56)
[2022-08-25] MEDS: INSULIN -REGULAR HUMAN 50 UNIT/0.5 ML ML SQ SCH (21:00)
[2022-08-25] MEDS ORDERED: INSULIN -REGULAR HUMAN 50 UNIT/0.5 ML ML ONE (21:12)
[2022-08-25 21:35] VITALS: BMI 32.5
[2022-08-26 04:07] LABS: Absolute Lymphocytes (CBC) 3.9 K/uL (0.7-4.9); Hematocrit 37.4 % (36.0-45.0); Lymphocytes % 41.1 % (15.3-44.8); RBC Red Blood Cell Count 4.25 M/uL (3.86-4.86)
[2022-08-26 04:24] LABS: Phosphorus 2.8 mg/dL (2.5-4.9); Potassium 3.9 mmol/L (3.5-5.1)
[2022-08-26] MEDS: INSULIN -REGULAR HUMAN 50 UNIT/0.5 ML ML SQ SCH ×4 (07:30→22:00)
[2022-08-26] MEDS ORDERED: VANCOMYCIN 1 GM/VIAL ONE (08:06)
[2022-08-26] MEDS ORDERED: NA CHLORIDE 0.9% 250 ML ONE (08:06)
[2022-08-26] MEDS: VANCOMYCIN 1 GM in NA CHLORIDE 0.9% 250 ML IVPB SCH ×2 (08:38→21:44)
[2022-08-26] MEDS ORDERED: POTASSIUM CL SA 10 MEQ TAB PO ONE (09:00)
[2022-08-26] MEDS: NA CHLORIDE 0.9% 1,000 ML IV SCH ×2 (10:00→21:44)
[2022-08-26] MEDS ORDERED: NA CHLORIDE 0.9% 1,000 ML ONE (10:32)
[2022-08-26] MEDS ORDERED: propofoL 200 MG/20 ML VIAL IV ONE (12:22)
[2022-08-26] MEDS ORDERED: LIDOCAINE 2% MPF 5 ML VIAL ONE (12:23)
[2022-08-26] MEDS ORDERED: FENTANYL CITR 100 MCG/2 ML ONE (12:23)
[2022-08-26] MEDS ORDERED: MIDAZOLAM HCL 2 MG/2 ML INJ ONE (12:23)
[2022-08-26] MEDS ORDERED: KETOROLAC 30 MG/ML INJ ONE (13:18)
[2022-08-26] MEDS ORDERED: ONDANSETRON 4 MG/2 ML VIAL ONE ×2 (13:19→13:21)
--- NOTE | 2022-08-26 13:19 | P.OP ---
Preoperative diagnosis: RIGHT Great toe diabetic wound Postoperative diagnosis: RIGHT Great toe diabetic wound Primary procedure: Debridement of RIGHT Great toe diabetic wound Anesthesia: GETA + Local Estimated blood loss: <5cc Specimen: debridement tissue Findings: ~2cm round plantar wound Complications: None Transferred to: Recovery Room Condition: Good
--- NOTE | 2022-08-26 13:44 | OP ---
Date of Procedure: 08/26/2022 Surgeon: Mikael Bradley MD, Preoperative Diagnosis: Right great toe diabetic wound. Postoperative Diagnosis: Right great toe diabetic wound. Procedure: Debridement of right great toe diabetic wound. Anesthesia: General endotracheal plus local with 0.5% Marcaine. Estimated Blood Loss: Less than 5 cc. Specimen: Debrided tissue. Findings: Approximately 2 cm around plantar wound. Complications: None. Disposition: The patient was transferred to the recovery room in good condition. Procedure In Detail: After informed consent was obtained, the patient was brought to the operating r oom, prepped and draped in the usual sterile fashion after adequate anesthesia was achieved. An area of right great toe was anesthetized with additional 0.5% Marcaine without epinephrine. I then proce eded to sharply debride nonviable tissue circumferentially around the plantar aspect of the right gre at toe for approximately 2 cm area circumferentially around down into the plantar fascia. This was d ebrided using a combination of sharp dissection predominantly using curette as well as Metzenbaum and rongeur. After all nonviable tissue was cleansed, the area was inspected. Hemostasis was easily ac hieved with electrocautery. I then packed the wound with Vashe-soaked gauze and sterile dressing bart gilbert over top. The patient tolerated the procedure well without evidence of complication and transferred to PACU in good condition. All counts were correct at the end of the case. SIL/YAAKOV Voice ID: [id number] Report ID: [id number]
[2022-08-26 14:04] VITALS: O2SAT 90
--- NOTE | 2022-08-26 16:34 | P.PN ---
Subjective Date of Service: 08/26/22 Primary Care Provider: Geraldo Chief Complaint: Cellulitus R Big Toe Patient has no new complain. Status post right great toe ulcer debridement. Physical Examination - Vital Signs Temperature: 97.5 F Blood Pressure: 165/80 Pulse: 98 Respirations: 16 Pulse Ox (%): 97 - Studies Laboratory Data (last 24 hrs) 08/25/22 16:20: Sodium 132 L, Potassium 4.4, BUN 12, Creatinine 0.68, Glucose 426 H*, Total Bilirubin 0.5, AST 6 L, ALT 14, Alkaline Phosphatase 183 H 08/25/22 16:20: WBC 12.80 H, Hgb 12.9, Hct 38.6, Plt Count 304 Assessment And Plan - Current Problems (Diagnosis) (1) Ulcer of right great toe due to diabetes mellitus Current Visit: Yes Status: Acute (2) Cellulitis of toe of right foot Current Visit: Yes Status: Acute (3) Hypertension Current Visit: Yes Status: Chronic Qualifiers: Hypertension type: primary hypertension Qualified Code(s): I10 - Essential (primary) hypertension (4) Type 2 diabetes mellitus Current Visit: Yes Status: Chronic Qualifiers: Diabetes mellitus mcfp insulin use: without mcfp use Diabetes mellitus complication status: with hyperglycemia Qualified Code(s): E11.65 - Type 2 diabetes mellitus with hyperglycemia - Plan Physical Exam General: Alert, In no apparent distress HEENT: Atraumatic, PERRLA, EOMI, Sclerae nonicteric Neck: Supple, 2+ carotid pulse no bruit, No LAD, Without JVD or thyroid abnormality Respiratory: Clear to auscultation bilaterally, Normal air movement Cardiovascular: Regular rate/rhythm, Normal S1 S2 Gastrointestinal: Normal bowel sounds, No tenderness Musculoskeletal: No tenderness Integumentary: Tenderness/swelling (r big toe cellulitus), Erythema, Warmth, Diabetic ulcer (plantar aspect of r big toe) Neurological: Normal speech, Normal strength at 5/5 x4 extr, Normal tone Plan: Status post debridement of right great toe ulcer. Continue vancomycin, add oral Levaquin. Start Lantus insulin 20 units daily. Continue insulin sliding scale. Titrate long-acting insulin to a target blood sugar of less than 200. ADA diet. Compliance with diabetic medications reiterated. Surgery-Dr. Bradley to follow. Pain management as needed. Continue home antihypertensives.
[2022-08-26] MEDS: INSULIN GLARGINE 100 UNIT/ML SQ SCH (16:45)
[2022-08-26] MEDS ORDERED: ATORVASTATIN 10 MG TAB PO SCH (21:00)
[2022-08-26] MEDS ORDERED: HOME MED 1 EA UNK (Simvastatin [Zocor] 20 MG Tablet) PO SCH (21:00)
[2022-08-26] MEDS ORDERED: INSULIN -REGULAR HUMAN 50 UNIT/0.5 ML ML IV ONE (21:55)
[2022-08-27 04:16] LABS: Absolute Lymphocytes (CBC) 3.6 K/uL (0.7-4.9); Hematocrit 36.2 % (36.0-45.0); Lymphocytes % 40.6 % (15.3-44.8); MCV 89.1 fL (80-100); MPV 7.6 fL (7.6-11.3); RBC Red Blood Cell Count 4.07 M/uL (3.86-4.86)
[2022-08-27 04:33] LABS: Potassium 4.4 mmol/L (3.5-5.1)
[2022-08-27] MEDS: VANCOMYCIN 1 GM in NA CHLORIDE 0.9% 250 ML IVPB SCH (08:45)
[2022-08-27] MEDS: INSULIN GLARGINE 100 UNIT/ML SQ SCH (08:49)
[2022-08-27] MEDS: INSULIN -REGULAR HUMAN 50 UNIT/0.5 ML ML SQ SCH (08:50)
[2022-08-27 08:51] VITALS: BP 169/70
--- NOTE | 2022-08-27 08:57 | P.DS ---
Admission Date: 08/25/22 Discharge Date: 08/27/22 Primary Care Provider: Geraldo Disposition: ROUTINE DISCHARGE Discharge Condition: GOOD Reason for Admission: Cellulitus R Big Toe - Problems (1) Ulcer of right great toe due to diabetes mellitus Status: Acute (2) Cellulitis of toe of right foot Status: Acute (3) Hypertension Status: Chronic Qualifiers: Hypertension type: primary hypertension Qualified Code(s): I10 - Essential (primary) hypertension (4) Type 2 diabetes mellitus Status: Chronic Qualifiers: Diabetes mellitus care home insulin use: without ad terminal makeup operator use Diabetes mellitus complication status: with hyperglycemia Qualified Code(s): E11.65 - Type 2 diabetes mellitus with hyperglycemia Brief History of Present Illness: Patient is a 67-year-old female with past medical history of type 2 diabetes, hypertension, and hyperlipidemia who presented to the emergency department with complaints of right big toe erythema and swelling. Patient states that she has had a wound on the plantar aspect of her right big toe for over a month now, but she noticed the toe itself was becoming very red and swollen. She is diabetic but has not been taking any oral medication or insulin in over 6 months. She went to an urgent care today and they sent her here to have osteomyelitis ruled out. CT was negative for osteomyelitis. Labs significant for WBC 12.9, CRP 128, glucose 426. She was started on vancomycin. Dr. Bradley was contacted and patient admitted for further management. Hospital Course: Patient admitted to the medical floor and treated with IV vancomycin. She was seen and evaluated by Dr. Bradley who performed surgical debridement. She was placed on Lantus insulin and insulin sliding scale for glucose management. Patient is clinically stable for discharge. She is discharged with Lantus insulin 30 units daily, metformin. He has also been taking Ozempic which is continued on discharge. He is prescribed Augmentin and doxycycline for a diabetic foot ulcer with cellulitis. Vital Signs/Physical Exam: Temp Pulse Resp BP Pulse Ox 97.1 F 93 H 18 169/70 H 96 08/27/22 04:00 08/27/22 08:50 08/27/22 04:00 08/27/22 08:50 08/27/22 04:00 General: Alert, In no apparent distress, Oriented x3 HEENT: Mucous membr. moist/pink Neck: Supple, JVD not distended Respiratory: Clear to auscultation bilaterally, Normal air movement Cardiovascular: No edema, Regular rate/rhythm, Normal S1 S2 Gastrointestinal: Normal bowel sounds, Soft and benign, Non-distended, No tenderness Musculoskeletal: No swelling, Other (Right great toe wound dressed) Integumentary: No cyanosis Neurological: Normal strength at 5/5 x4 extr Laboratory Data at Discharge: WBC 8.90 K/uL (4.3-10.9) 08/27/22 04:04 Hgb 12.2 g/dL (12.0-15.0) 08/27/22 04:04 Hct 36.2 % (36.0-45.0) 08/27/22 04:04 Plt Count 303 K/uL (152-406) 08/27/22 04:04 Sodium 138 mmol/L (136-145) 08/27/22 04:04 Potassium 4.4 mmol/L (3.5-5.1) 08/27/22 04:04 BUN 13 mg/dL (7-18) 08/27/22 04:04 Creatinine 0.59 mg/dL (0.55-1.02) 08/27/22 04:04 Glucose 266 mg/dL (74-106) H 08/27/22 04:04 Phosphorus 2.8 mg/dL (2.5-4.9) 08/26/22 03:12 Magnesium 2.0 mg/dL (1.6-2.4) 08/26/22 03:12 Total Bilirubin 0.5 mg/dL (0.2-1.0) 08/25/22 16:20 AST 6 U/L (15-37) L 08/25/22 16:20 ALT 14 U/L (13-56) 08/25/22 16:20 Alkaline Phosphatase 183 U/L (45-117) H 08/25/22 16:20 Triglycerides 140 mg/dL (<150) 08/26/22 03:12 Cholesterol 144 mg/dL (<200) 08/26/22 03:12 HDL Cholesterol 33 mg/dL (40-60) L 08/26/22 03:12 Cholesterol/HDL Ratio 4.36 08/26/22 03:12 Home Medications: Carvedilol [Coreg] 12.5 mg PO DAILY 08/25/22 Ramipril [Altace] 10 mg PO DAILY 08/25/22 Simvastatin [Zocor] 20 mg PO BEDTIME 08/25/22 Alcohol Antiseptic Pads [Alcohol Prep Pad] 1 each TP DAILY #1 box 08/27/22 Amox/Clavulanate [Augmentin 875-125 Tab] 1 each PO BID #20 tab 08/27/22 Blood Sugar Diagnostic [Blood Glucose Test Strip] 1 each MC DAILY #30 strip 08/27/22 Blood-Glucose Meter [Blood Glucose Monitoring] 1 each MC DAILY #1 kit 08/27/22 Doxycycline Hyclate 100 mg PO BID #20 cap 08/27/22 Insulin Glargine,Hum.rec.anlog [Lantus Solostar] 30 unit SQ DAILY #15 ml 08/27/22 Metformin HCl [Glucophage*] 500 mg PO BIDWM #60 tab 08/27/22 Pen Needle, Diabetic [Pen Needle] 1 each MC DAILY #1 box 08/27/22 Semaglutide [Ozempic] 0.5 mg SQ EVERY 7TH DAY #1.5 ml 08/27/22 carvediloL [Carvedilol] 12.5 mg PO DAILY 30 Days #30 tab 08/27/22 New Medications: Alcohol Antiseptic Pads [Alcohol Prep Pad] 1 each TP DAILY #1 box Amox/Clavulanate [Augmentin 875-125 Tab] 1 each PO BID #20 tab Blood-Glucose Meter [Blood Glucose Monitoring] 1 each MC DAILY #1 kit Blood Sugar Diagnostic [Blood Glucose Test Strip] 1 each MC DAILY #30 strip carvediloL [Carvedilol] 12.5 mg PO DAILY 30 Days #30 tab Doxycycline Hyclate 100 mg PO BID #20 cap Metformin HCl [Glucophage*] 500 mg PO BIDWM #60 tab Insulin Glargine,Hum.rec.anlog [Lantus Solostar] 30 unit SQ DAILY #15 ml Semaglutide [Ozempic] 0.5 mg SQ EVERY 7TH DAY #1.5 ml Pen Needle, Diabetic [Pen Needle] 1 each MC DAILY #1 box Diet: ADA Followup: Rob Chow DO, DO [Primary Care Provider] - (Call to schedule appointment.) Mikael Bradley MD [ACTIVE - CAN ADMIT] - 1 Week (Call to schedule appointment. ) Time spent managing pt's care (in minutes): 32
[2022-08-27] MEDS ORDERED: ramipriL 5 MG CAP PO SCH (09:00)
[2022-08-27] MEDS ORDERED: carvediloL 12.5 MG TAB PO SCH (09:00)
[2022-08-27 09:33] VITALS: TEMP 98.5
== END 2022-08-27 10:55 | disposition home or self-care (01) | DRG 572 ==
LOC: ER 15:35 → ERHOLD 19:19 → 4TH 08-26 13:29
PROVIDERS: ADMIT Internal Medicine; ATTEND Internal Medicine
PROC: 0JBQ0ZZ Excision of Right Foot Subcutaneous Tissue and Fascia, Open Approach (ICD-10-PCS; principal; 2022-08-26 15:15)
DX: L03.031 Cellulitis of right toe (principal); I10 Essential (primary) hypertension; E78.5 Hyperlipidemia, unspecified; E11.65 Type 2 diabetes mellitus with hyperglycemia; E11.621 Type 2 diabetes mellitus with foot ulcer; L97.519 Non-pressure chronic ulcer of other part of right foot with unspecified severity; Z88.5 Allergy status to narcotic agent; Z91.14 Patient's other noncompliance with medication regimen; Z91.128 Patient's intentional underdosing of medication regimen for other reason; Z20.822 Contact with and (suspected) exposure to COVID-19
CPT/HCPCS: 36415; 73700; 80048; 80053; 80061; 82947; 83036; 83605; 83735; 84100; 85025; 86140; 87040; 87811; 88304; 93926; 96374; 99285; J1815; J2001; J2250; J2405; J2704; J3010; J3370; J7030; J7050